=== PATIENT | male | born 1980 | race Caucasian/White ===

== ENCOUNTER 2016-04-20 11:27 | Day surgery (SDC) | payer OTHER ==
[~2016-04-20] VITALS: Ht 165.1 cm; Wt 86.9 kg
[~2016-04-20 11:27] MED LIST: AMLO-147 PO; HYD25 PO; ONDA4TAB14 PO; PANT40TA4 PO; SERT-165 PO; SUCR1TAB56 PO
[2016-04-20 12:11] VITALS: Ht 165.1 cm; Wt 86.9 kg
[2016-04-20] MEDS ORDERED: PROPOFOL 20 ML ONE (12:34)
[2016-04-20] MEDS ORDERED: LIDOCAINE 2% (SDV) 5 ML INJ ONE (12:34)
[2016-04-20] MEDS ORDERED: MIDAZOLAM 1 MG/ML 2 ML INJ ONE (12:34)
[2016-04-20 12:48] VITALS: BP 148/87; PULSE 100; RESP 20
[2016-04-20 14:20] VITALS: BP 134/74; PULSE 92; RESP 16
--- NOTE | 2016-04-20 14:56 | GILP ---
DATE OF PROCEDURE: NAME OF PROCEDURE: Esophagogastroduodenoscopy and biopsy. SURGEON: Laith Chiu MD PREOPERATIVE DIAGNOSES: 1. Chronic heartburn. 2. Vomiting. POSTOPERATIVE DIAGNOSES: 1. Reflux esophagitis with erosions. 2. Hiatal hernia. 3. Status post fundoplication. 4. Gastritis. 5. Gastric mucosal biopsies were taken for Helicobacter pylori test. 6. Residual food in the stomach. INDICATION FOR THE PROCEDURE: Mr. Luis Treviño is a 36-year-old male patient who was complaining o f chronic heartburn, not responding to therapy. He also had vomiting. The patient was scheduled for endoscopic examination for further evaluation. The procedure and possible complications are well explained to the patient, he understood and consen silvano to the procedure. DESCRIPTION OF PROCEDURE: Under the influence of anesthesia, the gastroscope was carefully introduc ed into the esophagus, and under direct vision, it was advanced to the stomach and through the pylor us into the duodenal bulb and descending duodenum. FINDINGS: ESOPHAGUS: The patient had hiatal hernia with reflux esophagitis and erosions at the lower end. STOMACH: The patient was status post fundoplication. He had gastritis. He also had residual food in the stomach. Gastric mucosal biopsies were taken for H pylori test. DUODENUM: Normal. He tolerated the procedure very well and there was no complication from the procedure. At the end o f the procedure, he was awake with stable vital signs and he was discharged home to the care of his family. IMPRESSION: Please see postoperative diagnoses. PLAN: 1. Continue pantoprazole 40 mg p.o. every morning. 2. Add Zantac 300 mg p.o. at bedtime. 3. Reglan 5 mg p.o. t.i.d. a.c. 4. Await H pylori test report. Dictated By: LAITH JONAS/KELVIN Conf#: [id number] DID#: [id number]
== END 2016-04-20 14:29 | disposition home or self-care (01) ==
LOC: EDBD → GIL 11:27
PROVIDERS: ATTEND Internal Medicine Gastroenterology
DX: K21.0 Gastro-esophageal reflux disease with esophagitis (principal); K44.9 Diaphragmatic hernia without obstruction or gangrene; K29.70 Gastritis, unspecified, without bleeding; I10 Essential (primary) hypertension
CPT/HCPCS: 43239; 87081; J2250; Z7610

== ENCOUNTER 2016-04-24 07:46 | Emergency (ER) | payer OTHER ==
[~2016-04-24] VITALS: Ht 165.1 cm; Wt 87.0 kg
[2016-04-24 07:50] VITALS: Ht 165.1 cm; Wt 87.0 kg
[2016-04-24] MEDS ORDERED: SOD CHLORIDE 0.9% 1,000 ML IV STA (09:42)
[2016-04-24] MEDS ORDERED: ONDANSETRON 4 MG INJ IV STA (09:42)
[2016-04-24] MEDS ORDERED: PANTOPRAZOLE 40 MG INJ IV STA (09:42)
--- NOTE | 2016-04-24 09:55 | ERD ---
ER Documentation Chief Complaint Date/Time DATE: 04/24/16 TIME: 09:48 Chief Complaint HEMATEMESIS THIS IS A CHRONIC ISSUE AND HAD A ENDOSCOPY ON THE 36-year-old male complaining of hematemesis for 4 days. Patient had an upper endoscopy 4 days ago with the diagnoses of reflux esophagitis, hiatal hernia, gastritis with gastric mucosal biopsies for H pylori test. He also complains of right upper quadrant pain for 4 days. Denies EtOH use. Patient has decreased p.o. intake due to vomiting in spite of taking antinausea medications. Denies any fever, chest pain or shortness of breath. Denies bloody stool or melena. ROS All systems reviewed and are negative except as per history of present illness. Medications Home Meds Active Scripts Metoclopramide* (Reglan*) 10 Mg Tablet, 10 MG PO Q6 Y for NAUSEA AND/OR VOMITING , #14 TAB Prov:THIERNO SORENSEN 04/24/16 Ondansetron (Ondansetron Odt) 4 Mg Tab.rapdis, 4 MG PO Q6H Y for NAUSEA AND/OR VOMITING, #10 TAB Prov:KRISTI JULES 01/14/16 Reported Medications Amlodipine Besylate* (Amlodipine Besylate*) 10 Mg Tablet, 10 MG PO DAILY, #30 TAB 01/14/16 Pantoprazole* (Pantoprazole*) 40 Mg Tablet.dr, 40 MG PO AC BREAKFAST, TAB 01/14/16 Hydrochlorothiazide* (Hydrochlorothiazide*) 25 Mg Tab, 12.5 MG PO DAILY for 60 Days, #30 TAB 11/06/15 Sertraline Hcl* (Sertraline Hcl*) 100 Mg Tablet, 100 MG PO DAILY 08/22/12 Discontinued Scripts Sucralfate* (Carafate*) 1 Gm Tab, 1 GM PO QID, #60 TAB Prov:KRISTI JULES 01/14/16 Allergies Allergies: Coded Allergies: No Known Allergies (Verified Allergy, Mild, 04/24/16) PMhx/Soc History of Surgery: Yes (HIATAL HERNIA) Anesthesia Reaction: No Hx Neurological Disorder: No Hx Respiratory Disorders: No Hx Cardiac Disorders: No Hx Psychiatric Problems: Yes (ANXIETY/ DEPRESSION) Hx Miscellaneous Medical Probl: No Hx Alcohol Use: No Hx Substance Use: No Hx Tobacco Use: No Smoking Status: Never smoker Physical Exam Vitals Vital Signs Date Time Temp Pulse Resp B/P Pulse Ox O2 Delivery O2 Flow Rate FiO2 04/24/16 07:50 99.2 131 18 147/108 98 Physical Exam Const: Well-developed, well-nourished, in no acute distress. HEENT: Atraumatic. Normal Conjunctiva. TM intact. External ear is normal, mastoids are nontender clear oropharynx. Supple. Full range of motion. No meningismus. Erythematous oropharynx. Resp: Clear to auscultation bilaterally Cardio: Regular rate and rhythm, no murmurs Abd: Soft, non tender, non distended. Normal bowel sounds. No McBurney' s point tenderness. Negative for Finch sign. No guarding or rigidity. No peritoneal signs. Skin: No petechia or rashes Back: No midline or flank tenderness Ext: No cyanosis, or edema Neur: Awake and alert, appropriate for age Result Diagram: 04/24/16 1000 04/24/16 1000 Results 24 hrs Laboratory Tests Test 04/24/16 10:00 Activated Partial Thromboplast Time 29.2Sec Alanine Aminotransferase (ALT/SGPT) 42IU/L Albumin 4.6g/dl Albumin/Globulin Ratio 1.31 Alkaline Phosphatase 137IU/L Anion Gap 20 Aspartate Amino Transf (AST/SGOT) 27IU/L Basophils # 0.010^3/ul Basophils % 0.3% Blood Morphology Comment Blood Urea Nitrogen 11mg/dl Calcium Level 9.4mg/dl Carbon Dioxide Level 27mmol/L Chloride Level 103mmol/L Creatinine 0.93mg/dl Direct Bilirubin 0.00mg/dl Eosinophils # 0.410^3/ul Eosinophils % 4.2% Globulin 3.50g/dl Glucose Level 76mg/dl Hematocrit 41.9% Hemoglobin 14.2g/dl INR International Normalized Ratio 0.97 Indirect Bilirubin 0.1mg/dl Lipase 49U/L Lymphocytes # 1.810^3/ul Lymphocytes % 20.7% Mean Corpuscular Hemoglobin 28.5pg Mean Corpuscular Hemoglobin Concent 33.9g/dl Mean Corpuscular Volume 84.1fl Mean Platelet Volume 8.5fl Monocytes # 0.610^3/ul Monocytes % 6.5% Neutrophils # 6.010^3/ul Neutrophils % 68.3% Nucleated Red Blood Cells # 0.010^3/ul Nucleated Red Blood Cells % 0.0/100WBC Platelet Count 79141^3/UL Potassium Level 4.1mmol/L Prothrombin Time 12.9Sec Prothrombin Time Ratio 1.0 Red Blood Count 4.9810^6/ul Red Cell Distribution Width 14.3% Sodium Level 146mmol/L Total Bilirubin 0.1mg/dl Total Protein 8.1g/dl White Blood Count 8.910^3/ul Current Medications Medications (Trade) Dose Ordered Sig/Danyel Route PRN Reason Start Time Stop Time Status Last Admin Dose Admin Sodium Chloride (NS) 1,000 ml @ 1,000 mls/hr Q1H STAT IV 04/24/16 09:42 04/24/16 10:41 DC 04/24/16 10:03 Pantoprazole (Protonix Iv) 40 mg ONCE STAT IV 04/24/16 09:42 04/24/16 09:50 DC 04/24/16 10:03 Ondansetron HCl (Zofran Inj) 4 mg ONCE STAT IV 04/24/16 09:42 04/24/16 09:50 DC 04/24/16 10:03 Procedures/MDM 36-year-old male who was admitted at the emergency department for hematemesis 4 days, right upper quadrant abdominal pain, and poor p.o. intake. Patient had an upper endoscopy that was done on April 20, 2016 with a diagnosis of reflux expected esophagitis and gastritis and biopsy was negative for H. pylori. Case was discussed with Dr. Chatman and patient was treated with IV hydration, Zofran IV, and Protonix IV. Hemoglobin, ALT, and lipase results are within normal limits. Patient will be discharged home with a prescription for oral antiemetic. A copy of his upper endoscopy report was given to him. He was also instructed to follow-up with his GI specialist in 2 days. Pt was also instructed to return to the ER note for fever, chest pain, shortness of breath, or if his condition worsens. Differential diagnosis includes cholecystitis, pancreatitis, gastroparesis, appendicitis, cirrhosis. Departure Diagnosis: Primary Impression: Hematemesis Nausea presence: with nausea Qualified Code: K92.0 - Hematemesis with nausea Additional Impressions: Esophagitis determined by endoscopy Gastritis Gastritis type: other gastritis Chronicity: unspecified Gastritis bleeding : with bleeding Qualified Code: K29.61 - Other gastritis with bleeding, unspecified chronicity Condition: THIERNO Trevino Apr 24, 2016 09:55
[2016-04-24 10:08] LABS: BASOPHILS % 0.3 % (0.0-2.0); EOSINOPHILS # 0.4 10^3/ul (0.0-0.5); EOSINOPHILS % 4.2 % (0.0-7.0); HEMATOCRIT 41.9 % (42.0-52.0); HEMOGLOBIN 14.2 g/dl (14.0-18.0); LYMPHOCYTES # 1.8 10^3/ul (0.8-2.9); LYMPHOCYTES % 20.7 % (15.0-51.0); MEAN CORPUSCULAR HEMOGLOBIN 28.5 pg (29.0-33.0); MEAN CORPUSCULAR HGB CONC 33.9 g/dl (32.0-37.0); MEAN CORPUSCULAR VOLUME 84.1 fl (82.0-101.0); MEAN PLATELET VOLUME 8.5 fl (7.4-10.4); MONOCYTE # 0.6 10^3/ul (0.3-0.9); MONOCYTES % 6.5 % (0.0-11.0); NEUTROPHILS % 68.3 % (39.0-77.0); PLATELET COUNT 229 10^3/UL (140-440); RED BLOOD COUNT 4.98 10^6/ul (4.70-6.10); RED CELL DISTRIBUTION WIDTH 14.3 % (11.5-14.5); UNCORRECTED WBC 8.9 10^3/ul (4.8-10.8); WHITE BLOOD COUNT 8.9 10^3/ul (4.8-10.8)
[2016-04-24 10:16] LABS: CONDITION 1
[2016-04-24 10:19] LABS: INR 0.97; PROTIME 12.9 Sec (12.2-14.2)
[2016-04-24 10:20] LABS: PARTIAL THROMBOPLASTIN TIME 29.2 Sec (25.0-35.0)
[2016-04-24 10:29] LABS: ALBUMIN 4.6 g/dl (3.3-4.9)
[2016-04-24 10:30] LABS: POTASSIUM 4.1 mmol/L (3.5-5.1)
[2016-04-24 10:32] LABS: ALBUMIN/GLOBULIN RATIO 1.31; BILIRUBIN,INDIRECT 0.1 mg/dl (0-1.1); BILIRUBIN,TOTAL 0.1 mg/dl (0.2-1.3); CREATININE 0.93 mg/dl (0.61-1.24); TOTAL PROTEIN 8.1 g/dl (6.1-8.1)
[2016-04-24 10:33] LABS: CALCIUM 9.4 mg/dl (8.4-10.2)
[2016-04-24] MEDS ORDERED: METO10TA92 PO (11:08)
[2016-04-24 11:30] VITALS: BP 132/68; PULSE 79; RESP 18; TEMP 98.1
== END 2016-04-24 11:31 | disposition home or self-care (01) ==
LOC: FTE 07:46
DX: K92.0 Hematemesis (principal); K29.61 Other gastritis with bleeding; K20.9 Esophagitis, unspecified
CPT/HCPCS: 36415; 80053; 83690; 85025; 85610; 85730; 96374; 96375; C9113; J2405; J7030; Z7502

== ENCOUNTER 2016-06-06 06:28 | Emergency (ER) | payer OTHER ==
[~2016-06-06] VITALS: Ht 165.1 cm; Wt 88.5 kg
[~2016-06-06 06:28] MED LIST changes: +METO10TA92 PO; -SUCR1TAB56 PO
[2016-06-06 06:32] VITALS: Ht 165.1 cm; Wt 88.5 kg
[2016-06-06] MEDS ORDERED: RANI150T9 PO (06:47)
[2016-06-06 06:48] VITALS: BP 136/73; PULSE 129; RESP 22
--- NOTE | 2016-06-06 07:54 | ERD ---
ER Documentation Chief Complaint Date/Time DATE: 06/06/16 TIME: 07:51 Chief Complaint vomiting blood x 3 days,fever,right upper quadrant pain HPI Patient is a 36-year-old male with hypertension and hematemesis who presents with vomiting blood. He said that he has been vomiting for the past 3 days. He said that he is taking Zofran. He said that he takes Protonix. He has not called his primary doctor or his GI doctor as of yet. His primary doctor is Dr. Tai and his GI doctor is Dr. Orona. He said that he did have a recent endoscopy which showed esophagitis and ulcer. Upon review of old medical records the patient has multiple visits to the ER with similar type complaints. I know him from previous visits and he is normally tachycardic upon arrival. Review of the emergency department information exchange shows visits to [facility] as well and he was just there this morning although when I asked him when he last saw a doctor he said "it has been a while." ROS All systems reviewed and are negative except as per history of present illness. Medications Home Meds Active Scripts Ranitidine Hcl* (Zantac*) 150 Mg Tablet, 150 MG PO BID Y for EPIGASTRIC PAIN, # 30 TAB Prov:WISAM MIGUEL MD 06/06/16 Metoclopramide* (Reglan*) 10 Mg Tablet, 10 MG PO Q6 Y for NAUSEA AND/OR VOMITING , #14 TAB Prov:THIERNO SORENSEN 04/24/16 Ondansetron (Ondansetron Odt) 4 Mg Tab.rapdis, 4 MG PO Q6H Y for NAUSEA AND/OR VOMITING, #10 TAB Prov:KRISTI JULES 01/14/16 Reported Medications Amlodipine Besylate* (Amlodipine Besylate*) 10 Mg Tablet, 10 MG PO DAILY, #30 TAB 01/14/16 Pantoprazole* (Pantoprazole*) 40 Mg Tablet.dr 40 MG PO AC BREAKFAST, TAB 01/14/16 Hydrochlorothiazide* (Hydrochlorothiazide*) 25 Mg Tab, 12.5 MG PO DAILY for 60 Days, #30 TAB 11/06/15 Sertraline Hcl* (Sertraline Hcl*) 100 Mg Tablet, 100 MG PO DAILY 08/22/12 Allergies Allergies: Coded Allergies: No Known Allergies (Verified Allergy, Mild, 04/24/16) PMhx/Soc History of Surgery: Yes (HIATAL HERNIA) Anesthesia Reaction: No Hx Neurological Disorder: No Hx Respiratory Disorders: No Hx Cardiac Disorders: No Hx Psychiatric Problems: Yes (ANXIETY/ DEPRESSION) Hx Miscellaneous Medical Probl: No Hx Alcohol Use: No Hx Substance Use: No Hx Tobacco Use: No FmHx Family History: No diabetes Physical Exam Vitals Vital Signs Date Time Temp Pulse Resp B/P Pulse Ox O2 Delivery O2 Flow Rate FiO2 06/06/16 06:48 129 22 136/73 100 Room Air 06/06/16 06:32 97.7 133 18 129/77 100 Physical Exam Const: No acute distress Head: Atraumatic Eyes: Normal Conjunctiva, pink without signs of anemia ENT: Normal External Ears, Nose and Mouth. Neck: Full range of motion..~ No meningismus. Resp: Clear to auscultation bilaterally Cardio: Tachycardic rate with normal rhythm Abd: Soft, non tender, non distended. Normal bowel sounds Skin: No petechiae or rashes Back: No midline or flank tenderness Ext: No cyanosis, or edema Neur: Awake and alert Psych: Normal Mood and Affect Procedures/MDM Patient is a 36-year-old male who presents with a complaint of vomiting blood. He had one episode of vomiting in the emergency department but there was no blood witnessed. The patient is tachycardic but this is his normal presentation. He was taking Zofran and Protonix at home. I will add an H2 jeremiah to his regimen and will give him a prescription for Zantac. 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 I do not believe he requires further workup here in the emergency department. I doubt significant anemia at this time given his physical exam. The patient will need to return for any worsening symptoms. This is most likely an upper GI bleed which is stable from either gastritis or ulcer. Departure Diagnosis: Primary Impression: Hematemesis Nausea presence: with nausea Qualified Code: K92.0 - Hematemesis with nausea Additional Impression: Abdominal pain Abdominal location: epigastric Qualified Code: R10.13 - Epigastric pain Condition: Fair Patient Instructions: Gi Bleed, Upper (Stable) Referrals: MARIFER ORONA MD Additional Instructions: SPECIALIST: YOU HAVE A MEDICAL CONDITION WHICH REQUIRES YOU TO SEE A SPECIALIST WITHIN THE NEXT 1-2 DAYS. PLEASE FOLLOW UP WITH YOUR PRIMARY PHYSICIAN FOR REFFERAL.IF YOU DO NOT HAVE A PRIMARY CARE PHYSICIAN AND/OR YOU CAN NOT AFFORD TO SEE A PHYSICIAN THE FOLLOWING RESOURCES HAVE BEEN SUPPLIED TO YOU. IT IS YOUR RESPONSIBILITY TO BE SEEN BY THE SPECIALIST WISAM MIGUEL MD Jun 06, 2016 07:54
== END 2016-06-06 07:00 | disposition home or self-care (01) ==
LOC: E/R 06:28
DX: K92.0 Hematemesis (principal); R40.2252 Coma scale, best verbal response, oriented, at arrival to emergency department; R10.13 Epigastric pain
CPT/HCPCS: 99283

== ENCOUNTER 2016-12-01 08:47 | Emergency (ER) | payer OTHER ==
[~2016-12-01] VITALS: Ht 165.1 cm; Wt 88.0 kg
[~2016-12-01 08:47] MED LIST changes: -HYD25 PO; +HYDR25TA6 PO; +RANI150T9 PO
[2016-12-01 08:50] VITALS: Ht 165.1 cm; Wt 88.0 kg
[2016-12-01] MEDS ORDERED: ONDANSETRON 4 MG INJ IV STA (08:59)
[2016-12-01] MEDS ORDERED: morphine 4 MG/ML VIAL IV STA (08:59)
[2016-12-01] MEDS ORDERED: SOD CHLORIDE 0.9% 1,000 ML IV STA (08:59)
[2016-12-01] MEDS ORDERED: FAMOTIDINE 20 MG INJ IV STA (08:59)
--- NOTE | 2016-12-01 09:05 | ERD ---
ER Documentation Chief Complaint Date/Time DATE: 12/01/16 TIME: 09:00 Chief Complaint vomiting blood bright red and black per patient x 3 days, anxiety HPI This is a 36-year-old male that presents to the emergency department with a known history of hiatal hernia and peptic ulcer disease. He states that for the past 3 days he has had multiple episodes of emesis. He indicates that he did have one episode of coffee-ground emesis but denies any melanotic stools or hematemesis. Contrary to the triage note the patient states that he did not experience any active hematemesis. He has had no fevers or shaking or chills. He denies any history of alcohol abuse and states he drinks socially. He has had no fevers no shaking or chills. He does complain of a retrosternal burning pain but denies any chest pressure that radiates to the neck arm back or jaw. The patient has an appointment today in 2 hours with the GI physician Dr. Chiu to undergo an upper endoscopy. The patient had a previous hiatal hernia surgery repair in 2009. Has any lower abdominal pain. ROS All systems reviewed and are negative except as per history of present illness. Medications Home Meds Active Scripts Ranitidine Hcl* (Zantac*) 150 Mg Tablet, 150 MG PO BID Y for EPIGASTRIC PAIN, # 30 TAB Prov:WISAM MIGUEL MD 06/06/16 Metoclopramide* (Reglan*) 10 Mg Tablet, 10 MG PO Q6 Y for NAUSEA AND/OR VOMITING , #14 TAB Prov:THIERNO SORENSEN 04/24/16 Ondansetron (Ondansetron Odt) 4 Mg Tab.heavendis, 4 MG PO Q6H Y for NAUSEA AND/OR VOMITING, #10 TAB Prov:KRISTI JULES 01/14/16 Reported Medications Amlodipine Besylate* (Amlodipine Besylate*) 10 Mg Tablet, 10 MG PO DAILY, #30 TAB 01/14/16 Pantoprazole* (Pantoprazole*) 40 Mg Tablet.dr, 40 MG PO AC BREAKFAST, TAB 01/14/16 Hydrochlorothiazide* (Hydrochlorothiazide*) 25 Mg Tab, 12.5 MG PO DAILY for 60 Days, #30 TAB 11/06/15 Sertraline Hcl* (Sertraline Hcl*) 100 Mg Tablet, 100 MG PO DAILY 08/22/12 Allergies Allergies: Coded Allergies: No Known Allergies (Verified Allergy, Mild, 04/24/16) PMhx/Soc History of Surgery: Yes (HIATAL HERNIA) Anesthesia Reaction: No Hx Neurological Disorder: No Hx Respiratory Disorders: No Hx Cardiac Disorders: No Hx Psychiatric Problems: Yes (ANXIETY/ DEPRESSION) Hx Miscellaneous Medical Probl: No Hx Alcohol Use: No Hx Substance Use: No Hx Tobacco Use: No Physical Exam Vitals Vital Signs Date Time Temp Pulse Resp B/P Pulse Ox O2 Delivery O2 Flow Rate FiO2 12/01/16 08:50 98.5 110 20 159/103 98 Physical Exam Constitutional:Well-developed. Well-nourished. Appears anxious not actively vomiting. Nontoxic in appearance HEENT:Normocephalic. Atraumatic.Pupils were equal round reactive to light. Moist mucous membranes.No tonsillar exudates. Present within the posterior pharynx. No conjunctival pallor Neck: No nuchal rigidity. No lymphadenopathy. No posterior cervical spine tenderness or step-offs. Respiratory: Not using accessory muscles of respiration.Lungs were clear to auscultation bilaterally. No rhonchi. No rales. No wheezing. Cardiovascular: Regular rate regular rhythm.No murmurs. No rubs were appreciated.S1, S2 normal. Distal pulses are palpable 2+ bilaterally. GI: Abdomen was soft. Nontender. Non Distended. No pulsatile abdominal masses or bruits. No rebound. No guarding. Bowel sounds were present and normal. Muscle skeletal: Full range of motion of both the upper and lower extremities bilaterally.Normal muscle tone.No assymetrical calf tenderness or swelling. Skin: No petechia, no purpura. No lesions on the palms or the soles of the feet. No maculopapular rash. NEURO: Patient was alert, awake, orientated x3.No facial droop. Gait observed and normal with no ataxia.Speech had regular rate and rhythm. No focal neurological deficits. Procedures/MDM The patient presented to the emergency department with a presentation of upper gastrointestinal bleeding. My differential diagnosis included but was not limited to peptic ulcer disease, gastric or esophageal erosions, gastritis, esophageal varices, [place] tear, tumor or arteriovenous malformations. The patient had IV access established by nursing staff. The patient received IV fluids and Zofran Pepcid and Protonix. I did not administer any oral analgesic medication but the patient did receive intravenous morphine. The patient remained hemodynamically stable with no signs of active hematemesis or bright red blood per rectum. The patient is scheduled to undergo an upper endoscopy in the next [facility] by Dr. Chiu and therefore was discharged immediately to Dr. Chiu's office for definitive treatment with the endoscopy. Patient one view chest radiograph ordered and reviewed by myself which showed no evidence of perforation pneumothorax or free air underneath the diaphragm. Results of the patient's labs and x-rays were provided to the patient to give to his GI physician. The patient was discharged home in fair condition. They were instructed to return to the emergency department at any time if there was any worsening of their condition. The patient stated they would follow up with their PCP in the next 24-48 hours to initiate a suitable medication regimen under the care of their PCP as well as to allow their PCP to monitor any drug reactions. The patient was discharged home with prescriptions after they gave informed consent to the new medication. They were also fully informed by myself on the adverse effects and adverse drug interactions in order to provide adequate safeguards to prevent possible adverse reactions to medications. Departure Diagnosis: Primary Impression: Peptic ulcer disease Condition: Nelly MANUELA DALTON Dec 01, 2016 09:05
[2016-12-01] MEDS ORDERED: PANTOPRAZOLE 40 MG INJ IV STA (09:07)
[2016-12-01 09:18] LABS: BASOPHIL # 0.1 10^3/ul (0.0-0.1); BASOPHILS % 1.2 % (0.0-2.0); EOSINOPHILS # 0.5 10^3/ul (0.0-0.5); EOSINOPHILS % 5.3 % (0.0-7.0); HEMATOCRIT 44.1 % (42.0-52.0); HEMOGLOBIN 14.3 g/dl (14.0-18.0); LYMPHOCYTES # 2.6 10^3/ul (0.8-2.9); LYMPHOCYTES % 29.9 % (15.0-51.0); MEAN CORPUSCULAR HEMOGLOBIN 27.6 pg (29.0-33.0); MEAN CORPUSCULAR HGB CONC 32.4 g/dl (32.0-37.0); MEAN PLATELET VOLUME 10.3 fl (7.4-10.4); MONOCYTE # 0.6 10^3/ul (0.3-0.9); MONOCYTES % 6.4 % (0.0-11.0); NEUTROPHIL # 4.8 10^3/ul (1.6-7.5); NEUTROPHILS % 56.6 % (39.0-77.0); PLATELET COUNT 260 10^3/UL (140-415); RED BLOOD COUNT 5.19 10^6/ul (4.70-6.10); RED CELL DISTRIBUTION WIDTH 14.1 % (11.5-14.5); WHITE BLOOD COUNT 8.5 10^3/ul (4.8-10.8)
[2016-12-01 09:33] LABS: ALBUMIN 4.4 g/dl (3.3-4.9); ALBUMIN/GLOBULIN RATIO 1.1; BILIRUBIN,INDIRECT 0.2 mg/dl (0-1.1); BILIRUBIN,TOTAL 0.2 mg/dl (0.2-1.3); CALCIUM 9.6 mg/dl (8.4-10.2); CREATININE 1.19 mg/dl (0.61-1.24); POTASSIUM 3.6 mmol/L (3.5-5.1); TOTAL PROTEIN 8.4 g/dl (6.1-8.1)
--- NOTE | 2016-12-01 09:38 | RADRPT ---
PROCEDURE: XR Chest. CLINICAL INDICATION: Abdominal pain TECHNIQUE: Single frontal view of the chest was obtained COMPARISON: 01/14/2016 FINDINGS: The heart and mediastinum are within normal limits. The lungs are clear. There is no pleural effusion or pneumothorax. RPTAT: AA IMPRESSION: No acute disease. .Bert Holder MD, Date Time Electronically viewed and signed by .Bert Holder MD, on 12/01/2016 09:38 .S/
[2016-12-01] MEDS ORDERED: LORAZEPAM 2 MG INJ IV ONE (10:30)
== END 2016-12-01 11:39 | disposition home or self-care (01) ==
LOC: E/R 08:47
DX: K27.9 Peptic ulcer, site unspecified, unspecified as acute or chronic, without hemorrhage or perforation (principal); R40.2252 Coma scale, best verbal response, oriented, at arrival to emergency department; R40.2142 Coma scale, eyes open, spontaneous, at arrival to emergency department; R40.2362 Coma scale, best motor response, obeys commands, at arrival to emergency department
CPT/HCPCS: 36415; 71010; 80053; 82150; 83690; 85025; 96374; 96375; C9113; J2270; J2405; J7030; Z7502; Z7610; J2060

== ENCOUNTER 2016-12-01 11:28 | Day surgery (SDC) | payer OTHER ==
[~2016-12-01] VITALS: Ht 165.1 cm; Wt 89.1 kg
[2016-12-01 12:01] VITALS: Ht 165.1 cm; Wt 89.1 kg
[2016-12-01] MEDS ORDERED: PROPOFOL 40 ML ONE (12:07)
[2016-12-01] MEDS ORDERED: LIDOCAINE 2% (SDV) 5 ML INJ ONE (12:07)
[2016-12-01 12:12] VITALS: BP 145/78; PULSE 62; RESP 15
[2016-12-01 12:27] VITALS: BP 123/78; PULSE 79; RESP 17
--- NOTE | 2016-12-01 12:30 | OPPN ---
Date/Time of Note Date/Time of Note DATE: 12/01/16 TIME: 12:28 Operative Report Preoperative Diagnosis Chronic heartburn Hematemesis Postoperative Diagnosis Hiatal hernia Reflux esophagitis with erosions Gastritis with erosion Operation/Procedure Performed Esophagogastroduodenoscopy and biopsy Surgeon see signature line chiropractic assistant None Anesthesia: MAC Estimated blood loss: none Transfusion Required none Specimen Gastric biopsy Grafts/Implants none Complications none MARIFER ORONA MD Dec 01, 2016 12:30
[2016-12-01 12:50] VITALS: BP 136/85; PULSE 81; RESP 14
--- NOTE | 2016-12-01 13:50 | GILP ---
DATE OF PROCEDURE: 12/01/2016 SURGEON: Laith Chiu MD. PROCEDURE PERFORMED: Esophagogastroduodenoscopy and biopsy. PREOPERATIVE DIAGNOSES: 1. Chronic heartburn. 2. History of hematemesis. POSTOPERATIVE DIAGNOSES: 1. Hiatal hernia. 2. Reflux esophagitis with erosions. 3. Gastritis with erosions. 4. Gastric mucosal biopsies were taken for Helicobacter pylori test. INDICATION: Mr. Luis Treviño is a 35-year-old male patient who was complaining of chronic heartburn not responding to therapy. He also had a history of hematemesis. The patient was scheduled for endoscopy examination for further evaluation. The procedure and possible complications were well explained to the patient. He understood and consented to the procedure. DESCRIPTION OF PROCEDURE: Under the influence of anesthesia, the gastroscope was carefully introduced into the esophagus. Under direct vision, it was advanced to the stomach, into the pylorus, into the duodenal bulb, and descending duodenum. FINDINGS: ESOPHAGUS: The patient had a hiatal hernia with reflux esophagitis and erosions. STOMACH: The patient had gastritis with erosions. Gastric mucosal biopsies were taken for Helicobacter pylori test. Duodenum was normal. The patient tolerated the procedure very well. There was no complication from the procedure. At the end of procedure, he was awake with stable vital signs. He was discharged home in care of his family. IMPRESSION: Please see postop diagnoses. PLAN: 1. Pantoprazole 40 mg orally every morning. 2. Zantac 300 mg orally every night at bedtime. 3. Carafate 1 gram orally 3 times daily before meals. 4. Await Helicobacter pylori test report. Dictated By: MD PRITESH Bourne/sara/jeremy /Document#: [id number] CC: Laith Chiu MD;*End*
--- NOTE | 2016-12-02 13:20 | CONS ---
DATE OF ADMISSION: DATE OF CONSULTATION: 11/05/2016 HISTORY OF PRESENT ILLNESS: Dear Dr. Matt: I thank you very much for this kind referral. Mr. Luis Treviño is a 35-year-old male patient who has been referred to me for further evaluation of chronic heartburn not responding to therapy. He has been taking Protonix and Zantac. He is status post a surgery for hiatal hernia. The patient also complains of vomiting and he gives history of hematemesis and black stools. He is not taking any nonsteroidal anti-inflammatory agents. His appetite has been good and no weight loss. No change in bowel habits or rectal bleeding. No history of gallstones or liver disease. PAST MEDICAL HISTORY: He is hypertensive, not diabetic. No heart disease, lung problem or kidney disease. He has anxiety disorder. SOCIAL HISTORY: Nonsmoker. Does not abuse alcohol. FAMILY HISTORY: No family history of gastrointestinal tract neoplasm. ALLERGIES: NO DRUG ALLERGIES. MEDICATION: 1. Protonix. 2. Zantac. 3. Zofran. 4. Metoprolol. 5. Quinapril. 6. Hydrochlorothiazide. Zoloft. PHYSICAL EXAMINATION: VITAL SIGNS: He is 5 feet 5 inches tall and weighs 180 pounds. CARDIAC: Normal heart sounds. LUNGS: Clear. ABDOMEN: Soft. No masses. Normal bowel sounds. NEUROLOGIC: Normal neurological exam. IMPRESSION: 1. Chronic heartburn not responding to therapy with Protonix and Zantac. The patient also gives history of vomiting and hematemesis. 2. Status post surgery for hiatal hernia. 3. Hypertension. 4. Anxiety disorder. PLAN: 1. Continue Protonix and Zantac. 2. Endoscopic examination for further evaluation. 3. Because of the anxiety disorder, he needs monitored anesthesia care. 4. The procedure and possible complications were well explained to the patient. He understands and consents to the procedure. I thank you once again. With warmest personal regards, Patient Name: LUIS TREVIÑO Dictated By: MD PRITESH Bourne/sara/yudi /Document#: [id number]
[2016-12-08] MEDS ORDERED: SERT-165 PO (06:06)
[2016-12-08] MEDS ORDERED: HYDR25TA6 PO (06:06)
[2016-12-08] MEDS ORDERED: ONDA4TAB8 PO (06:36)
[2016-12-08] MEDS ORDERED: MAG355OR14 PO (06:36)
[2016-12-08] MEDS ORDERED: OMEP40CA6 PO (06:36)
== END 2016-12-01 15:30 | disposition home or self-care (01) ==
LOC: GIL 11:28
PROVIDERS: ATTEND Internal Medicine Gastroenterology
DX: K21.0 Gastro-esophageal reflux disease with esophagitis (principal); K44.9 Diaphragmatic hernia without obstruction or gangrene; K29.70 Gastritis, unspecified, without bleeding; I10 Essential (primary) hypertension; F41.9 Anxiety disorder, unspecified
CPT/HCPCS: 43239; 87081; Z7610

== ENCOUNTER 2016-12-08 04:40 | Emergency (ER) | END 2016-12-08 07:57 | disposition home or self-care (01) | DX: K21.0 Gastro-esophageal reflux disease with esophagitis (principal); I10 Essential (primary) hypertension; R10.13 Epigastric pain; Z87.891 Personal history of nicotine dependence | CPT/HCPCS: 36415; 80053; 83690; 85025; 85610; 85730; Z7502 ==

== ENCOUNTER 2017-03-13 23:48 | Emergency (ER) | END 2017-03-14 04:16 | disposition home or self-care (01) ==

== ENCOUNTER 2017-03-23 02:14 | Emergency (ER) | END 2017-03-23 11:08 | disposition home or self-care (01) ==

== ENCOUNTER 2017-03-28 08:32 | Emergency (ER) | END 2017-03-28 15:07 | disposition home or self-care (01) ==

== ENCOUNTER 2017-04-05 00:27 | Emergency (ER) | END 2017-04-05 07:07 | disposition home or self-care (01) ==

== ENCOUNTER 2017-04-16 05:57 | Emergency (ER) | END 2017-04-16 08:08 | disposition home or self-care (01) ==

== ENCOUNTER 2017-04-21 04:14 | Emergency (ER) | END 2017-04-21 08:30 | disposition home or self-care (01) ==

== ENCOUNTER 2017-06-29 06:08 | Emergency (ER) | END 2017-06-29 08:48 | disposition home or self-care (01) ==

== ENCOUNTER 2017-09-04 05:49 | Inpatient (IN) | END 2017-09-09 11:50 | disposition home or self-care (01) | DRG 379 ==

== ENCOUNTER 2017-11-29 08:22 | Observation (INO) | END 2017-12-01 13:30 | disposition home or self-care (01) ==

== ENCOUNTER 2017-12-23 14:50 | Inpatient (IN) | END 2017-12-24 17:45 | disposition home or self-care (01) | DRG 379 ==

== ENCOUNTER 2018-02-02 15:03 | Observation (INO) | END 2018-02-04 18:55 | disposition home or self-care (01) ==